=== PATIENT | male | born 1960 | race Caucasian/White ===

== ENCOUNTER 2017-11-15 12:37 | Emergency (ER) | payer BC, OTHER ==
[~2017-11-15 12:37] MED LIST: ALLO300T2 PO; ASPI325T39 PO; CLOP1TAB5 PO; CYAN1SUB12 PO; DTR/5 PO; FOLI800T PO; GLIM2TAB PO; LISI-792 PO; METO25TA4 PO; NITR0.4S UT; PANT1TAB3 PO; PHEN-774 PO; SERTRALINE PO; SIMV40TA4 PO; TAMS0.4C38 PO
[2017-11-15 12:42] VITALS: TEMP 36.7; Ht 203.2 cm
[2017-11-15] MEDS ORDERED: MoRPHine SULFATE 4 MG/ML 1 ML CARP\\VIAL IV STA ×2 (13:26→15:14)
[2017-11-15] MEDS ORDERED: CEFAZOLIN IV 2,000 MG in DEXTROSE 5% 50ML 50 ML IV STA (13:26)
[2017-11-15] MEDS ORDERED: ONDANSETRON INJ 2 MG/ML 2 ML VIAL IV STA (13:26)
--- NOTE | 2017-11-15 13:51 | DIAGNOSTIC IMAGING REPORT ---
L HAND MIN 3 VIEWS ROUTINE CLINICAL HISTORY: Cut tips of fingers with saw trauma COMPARISON: None. DISCUSSION: Bone laceration with substance loss involving the distal phalanx left index finger. Soft tissue disruption is present. There may be minimal soft tissue disruption overlying the distal phalanx. All remaining osseous structures are unremarkable. Minimal scattered degenerative activity is present. IMPRESSION: Soft tissue and bony disruption/substance loss Distal phalanx left second finger. Mild soft tissue edema/disruption overlying the distal phalanx third finger. The above report was generated using voice recognition software. It may contain grammatical, syntax or spelling errors. Electronically signed by: Lawrence Piper M.D. 11/15/2017 1:50 PM Dictated Date/Time: 11/15/2017 1:48 PM
[2017-11-15 13:55] LABS: BASO % 0.2 %; BASO ABS # 0.02 K/uL (0-0.2); EOS % 2.1 %; EOS ABS # 0.18 K/uL (0-0.5); HEMATOCRIT 41.4 % (42-52); HEMOGLOBIN 13.9 g/dL (14.0-18.0); IG# 0.01 K/uL (0.00-0.02); LYMPH % 18.8 %; LYMPH ABS # 1.62 K/uL (1.2-3.4); MEAN CELL VOLUME 87.7 fL (80-100); MEAN CORPUSCULAR HEMOGLOBIN 29.4 pg (25-34); MEAN CORPUSCULAR HGB CONC 33.6 g/dl (32-36); MEAN PLATELET VOLUME 9.6 fL (7.4-10.4); MONO ABS # 0.52 K/uL (0.11-0.59); NEUT % 72.8 %; NEUT ABS # 6.29 K/uL (1.4-6.5); PLATELET COUNT 189 K/uL (130-400); RED CELL DISTRIBUTION WIDTH CV 14.5 % (11.5-14.5); RED CELL DISTRIBUTION WIDTH SD 46.4 fL (36.4-46.3); WHITE BLOOD COUNT 8.64 K/uL (4.8-10.8)
[2017-11-15 14:06] LABS: PTT PATIENT 26.3 SECONDS (21.0-31.0)
[2017-11-15 14:13] LABS: BLOOD UREA NITROGEN 29 mg/dl (7-18); CALCIUM 8.4 mg/dl (8.5-10.1); CARBON DIOXIDE 24 mmol/L (21-32); CREATININE 1.97 mg/dl (0.60-1.40); GLUCOSE 189 mg/dl (70-99); POTASSIUM 4.5 mmol/L (3.5-5.1); SODIUM 137 mmol/L (136-145)
[2017-11-15] MEDS ORDERED: LIDOCAINE 1% BUFFERED INJ 20 ML VIAL INFIL STA (14:17)
--- NOTE | 2017-11-15 16:11 | EMERGENCY ROOM VISIT NOTE ---
ED Visit Note First contact with patient: 13:23 Chief Complaint: "Cut finger left hand, on blood thinner". History of Present Illness: This patient is a 57-year-old male who presents to the Emergency Department via private vehicle accompanied by for evaluation of their left second digit and third digit lacerations. Patient sustained the laceration while operating a table saw, when he accidentally struck the second and third digits against the blade. They report a moderate amount of bleeding initially. Patient rates his current discomfort as a 10/10. Patient's Tetanus status is believed to be currently up-to-date. Medications: As noted below Allergies: None PMH: No pertinent SHx: Patient lives locally as well as in [facility] ROS: All pertinent positive and negative review of systems are appropriately documented in the History of Present Illness. Physical Exam: VITAL SIGNS - Vital signs and nursing notes were reviewed. Stable. Afebrile. GENERAL -57-year-old male appearing his stated age who is in no acute distress. Communicates well with provider and answers questions appropriately. SKIN - There is a complete avulsion of the distalmost aspect of the patient's left second digit to the bone but does not appear to be fractured as well as a minor avulsion of the skin and a small piece of the distal nail on the third digit with no bleeding. No foreign bodies appreciated. No active bleeding currently. MUSCULOSKELETAL - Laceration as described above. +5/5 strength appreciated of the affected digit. Full range of motion of the affected digit. NEUROLOGIC - Spinothalamic tract was found to be intact with ability to discriminate sharp versus dull sensation. No sensory defects of the dorsal column were appreciated utilizing light touch for evaluation. VASCULAR - Capillary refill was brisk. IMAGING: L HAND MIN 3 VIEWS ROUTINE CLINICAL HISTORY: Cut tips of fingers with saw trauma COMPARISON: None. DISCUSSION: Bone laceration with substance loss involving the distal phalanx left index finger. Soft tissue disruption is present. There may be minimal soft tissue disruption overlying the distal phalanx. All remaining osseous structures are unremarkable. Minimal scattered degenerative activity is present. IMPRESSION: Soft tissue and bony disruption/substance loss Distal phalanx left second finger. Mild soft tissue edema/disruption overlying the distal phalanx third finger. The above report was generated using voice recognition software. It may contain grammatical, syntax or spelling errors. Electronically signed by: Lawrence Piper M.D. 11/15/2017 1:50 PM Dictated Date/Time: 11/15/2017 1:48 PM ED Course: Patient was seen and evaluated by myself. Risks and benefits of performing primary wound closure versus no repair were discussed with the patient who verbalizes understanding. Verbal consent was obtained prior to performing the procedure. IV access was established. He was given Ancef for infection prevention secondary to the mechanism of injury, bone involvement, and risk of infection. He was given morphine for pain. Zofran for nausea. Blood work was also obtained. No concerning leukocytosis. BUN and creatinine are elevated. These are elevated compared to baseline but not significantly elevated compared to baseline. He was educated upon these and is to follow with the family doctor. The x-ray result, and his physical examination were concerning enough to warrant consult orthopedics. I discussed the case with Thuan Ramírez PA-C for [facility]. We discussed the case. The patient will follow up tomorrow at 11:15 AM with the hand specialist Dr. Saunders in the office. I was recommended to clean the wound well, applied dressing and he is to follow- up. He will be given Keflex p.o. this was dosed according to his current GFR. 5 cc of 1% buffered lidocaine without epinephrine was used to perform a digital block of the left second digit. The wound was cleansed and prepped in the typical sterile fashion utilizing normal saline and Betadine. The wound was sterilely draped. Once proper anesthetization was established, the wound was further examined and demonstrated complete avulsion of the distal second digit of the left hand to the bone. There is not enough skin to create a flap at this time. At this time no indication to place sutures at the skin is not there. The wound was copiously irrigated with normal saline and Betadine. I was able to Place Adaptic over this, and a nice bulky dressings that the bone was not exposed. Patient tolerated the procedure well. No complications were met. Patient educated on worrisome symptoms for return visit to the Emergency Department. He had questions in spite of discharge. Patient discharged to home in good condition. He will be given oxycodone for pain. No red flags in the [employer] drug monitoring system. In the evaluation and treatment of this patient, the following differential diagnoses were considered: Finger Fracture, Finger Dislocation, Finger Sprain, Finger Contusion, [place] Finger, or Mallet Finger. Current/Historical Medications Scheduled Allopurinol (Zyloprim), 300 MG PO QPM Aspirin (Aspirin Ec), 325 MG PO DAILY Cephalexin Monohydrate (Keflex), 500 MG PO BID Clopidogrel Bisulfate (Plavix), 75 MG PO DAILY Cyanocobalamin (Vitamin B-12), 2,500 MCG PO DAILY Folic Acid (Folic Acid), 800 MCG PO DAILY Glimepiride (Amaryl), 2 MG PO DAILY Lisinopril (Zestril), 20 MG PO DAILY Metoprolol Succinate (Toprol Xl), 25 MG PO QPM Nitroglycerin (Nitrostat), 0.4 MG UT PRN Pantoprazole (Protonix), 40 MG PO DAILY Simvastatin (Zocor), 40 MG PO QPM [Sergaline Hcl], 25 MG PO DAILY Scheduled PRN Oxycodone Ir (Roxicodone Ir), 1 TAB PO Q4H PRN for Pain Allergies Coded Allergies: No Known Allergies (Unverified , 11/15/17) Vital Signs Date Time Temp Pulse Resp B/P (MAP) Pulse Ox O2 Delivery O2 Flow Rate FiO2 11/15/17 16:46 55 170/68 99 11/15/17 14:48 72 16 142/89 96 Room Air 11/15/17 12:42 36.7 85 18 138/87 94 Room Air Laboratory Results 11/15/17 13:40 Red Blood Count 4.72, Mean Corpuscular Volume 87.7, Mean Corpuscular Hemoglobin 29.4, Mean Corpuscular Hemoglobin Concent 33.6, Mean Platelet Volume 9.6, Neutrophils (%) (Auto) 72.8, Lymphocytes (%) (Auto) 18.8, Monocytes (%) (Auto) 6.0, Eosinophils (%) (Auto) 2.1, Basophils (%) (Auto) 0.2, Neutrophils # (Auto) 6.29, Lymphocytes # (Auto) 1.62, Monocytes # (Auto) 0.52, Eosinophils # (Auto) 0.18, Basophils # (Auto) 0.02 11/15/17 13:40 Test 11/15/17 13:40 White Blood Count 8.64 K/uL (4.8-10.8) Red Blood Count 4.72 M/uL (4.7-6.1) Hemoglobin 13.9 g/dL (14.0-18.0) Hematocrit 41.4 % (42-52) Mean Corpuscular Volume 87.7 fL (80-100) Mean Corpuscular Hemoglobin 29.4 pg (25-34) Mean Corpuscular Hemoglobin Concent 33.6 g/dl (32-36) Platelet Count 189 K/uL (130-400) Mean Platelet Volume 9.6 fL (7.4-10.4) Neutrophils (%) (Auto) 72.8 % Lymphocytes (%) (Auto) 18.8 % Monocytes (%) (Auto) 6.0 % Eosinophils (%) (Auto) 2.1 % Basophils (%) (Auto) 0.2 % Neutrophils # (Auto) 6.29 K/uL (1.4-6.5) Lymphocytes # (Auto) 1.62 K/uL (1.2-3.4) Monocytes # (Auto) 0.52 K/uL (0.11-0.59) Eosinophils # (Auto) 0.18 K/uL (0-0.5) Basophils # (Auto) 0.02 K/uL (0-0.2) RDW Standard Deviation 46.4 fL (36.4-46.3) RDW Coefficient of Variation 14.5 % (11.5-14.5) Immature Granulocyte % (Auto) 0.1 % Immature Granulocyte # (Auto) 0.01 K/uL (0.00-0.02) Prothrombin Time 10.3 SECONDS (9.0-12.0) Prothromb Time International Ratio 1.0 (0.9-1.1) Activated Partial Thromboplast Time 26.3 SECONDS (21.0-31.0) Partial Thromboplastin Ratio 1.0 Anion Gap 8.0 mmol/L (3-11) Estimated GFR () 41.9 Estimated GFR (Non- 36.1 BUN/Creatinine Ratio 14.9 (10-20) Calcium Level 8.4 mg/dl (8.5-10.1) Medications Administered Medications (Trade) Dose Ordered Sig/Micheal Route Start Time Stop Time Status Last Admin Dose Admin Morphine Sulfate (MoRPHine SULFATE INJ) 4 mg NOW STAT IV 11/15/17 13:26 11/15/17 13:29 DC 11/15/17 13:47 4 MG Ondansetron HCl (Zofran Inj) 4 mg NOW STAT IV 11/15/17 13:26 11/15/17 13:29 DC 11/15/17 13:48 4 MG Cefazolin Sodium 2000 mg/Dextrose 65 ml @ 100 mls/hr NOW STAT IV 11/15/17 13:26 11/15/17 14:04 DC 11/15/17 13:48 100 MLS/HR Morphine Sulfate (MoRPHine SULFATE INJ) 4 mg NOW STAT IV 11/15/17 15:14 11/15/17 15:17 DC 11/15/17 15:25 4 MG Departure Information Impression Primary Impression: Finger avulsion Dispostion Home / Self-Care Condition GOOD Prescriptions Cephalexin Monohydrate (Keflex) 500 Mg Cap 500 MG PO BID for 7 Days, #14 CAP Prov: Rogelio Steven PA-C 11/15/17 Oxycodone Ir (Roxicodone Ir) 5 Mg Tab 1 TAB PO Q4H Y for Pain, #15 TAB For Initial Treatment Prov: Rogelio Steven PA-C 11/15/17 Referrals No Doctor, Assigned (PCP) Rodriguez Saunders MD Patient Instructions My [facility] Additional Instructions Discharge Instructions: You were seen in the emergency department for injuries to your fingers. Keflex 500 mg every 12 hours for 7 days, this is to help prevent infection. Please follow-up with the hand specialist tomorrow at 11:15. I provided the contact information. This is Dr. Saunders Please keep the bandage in place until you are seen tomorrow. If you develop fevers, chills, worsening pain or that is not controlled please return. As with any laceration you may have received nerve damage to the surrounding tissues. This damage may or may not be permanent. You should keep the area covered with sunscreen for the first 6 months to 1 year when at risk for exposure to help minimize scarring. You can also use scar reducing creams or Vitamin E oil to help minimize scarring. For pain control, you can use the following [id number] medicines Oxycodone immediate release. Please not drive with this medication. Return to the emergency department if your symptoms worsen despite treatment course outlined above. Please return with any new/concerning symptoms. Please follow-up with your family doctor regarding your kidney function here. BUN: 29 Creatinine:1.97
[2017-11-15] MEDS ORDERED: CEPH500C PO (16:14)
[2017-11-15] MEDS ORDERED: OXYC-90 PO (16:14)
[2017-11-15 16:46] VITALS: BP 170/68; PULSE 55; O2SAT 99
== END 2017-11-15 16:46 | disposition home or self-care (01) ==
LOC: C.EDB 12:38 → C.EDD 16:46
DX: S61.211A Laceration without foreign body of left index finger without damage to nail, initial encounter (principal); S61.213A Laceration without foreign body of left middle finger without damage to nail, initial encounter; W31.2XXA Contact with powered woodworking and forming machines, initial encounter; Z79.82 Long term (current) use of aspirin; Z79.899 Other long term (current) drug therapy